=== PATIENT | male | born 1950 | race Caucasian/White ===

== ENCOUNTER 2024-11-26 08:46 | Day surgery (SDC) | payer OTHER ==
[2024-11-22 12:03] VITALS: BMI 24.3
[2024-11-26] MEDS ORDERED: OFLOXACIN 0.3% OPHTHALMIC SOLUTION 5 ML BOTTLE ONE (08:49)
[2024-11-26] MEDS ORDERED: KETOROLAC TROMETHAMINE 0.5% EYE DROP 1 DROP DROPS ONE (08:49)
[2024-11-26] MEDS ORDERED: CYCLOPENTOLATE HCL 1% OPHTH SOLN 2 ML BOTTLE ONE (08:49)
[2024-11-26] MEDS ORDERED: PHENYLEPHRINE 2.5% OPTHALMIC DROP 2ML BOTTLE ONE (08:49)
[2024-11-26] MEDS ORDERED: TROPICAMIDE 1% 3 ML EYE DROPS ONE (08:49)
[2024-11-26] MEDS: OFLOXACIN 0.3% OPHTHALMIC SOLUTION 5 ML BOTTLE OS SCH (09:10)
[2024-11-26] MEDS: PHENYLEPHRINE 2.5% OPHTH SOLN 15 ML BOTTLE OS SCH (09:10)
[2024-11-26] MEDS: KETOROLAC TROMETHAMINE 0.5% EYE DROP 1 DROP DROPS OS SCH (09:10)
[2024-11-26] MEDS: TROPICAMIDE 1% OPHTH SOLN 15 ML BOTTLE OS SCH (09:10)
[2024-11-26] MEDS: CYCLOPENTOLATE HCL 1% OPHTH SOLN 2 ML BOTTLE OS SCH (09:10)
[2024-11-26] MEDS ORDERED: ACETAMINOPHEN 325 MG TABLET (FP) PO PRN (09:13)
[2024-11-26] MEDS ORDERED: BACITRACIN/POLYMYXIN OPH OINT 3.5 GM TUBE ONE (09:56)
[2024-11-26] MEDS ORDERED: POVIDONE-IODINE 5% OPHTHALMIC PREP 30 ML SOLUTION ONE (09:56)
[2024-11-26] MEDS ORDERED: EPI-SHUGARCAINE (EPINEPHRINE 0.025% & LIDOCAINE-PF 0.75%) 4ML ONE (09:56)
[2024-11-26] MEDS ORDERED: NEO/POLYMYX B SULF/DEXAMETH OPHTHALMIC 5ML BOTTLE ONE (09:56)
[2024-11-26] MEDS ORDERED: TETRACAINE 0.5% OPHTH SOLN 2 ML BOTTLE ONE (09:56)
[2024-11-26] MEDS ORDERED: BETAXOLOL HCL 0.25% OPHTHALMIC 10 ML DROPSBTL ONE (09:56)
[2024-11-26] MEDS ORDERED: MIDAZOLAM HCL 2 MG/2 ML SINGLE DOSE VIAL ONE ×2 (10:26→10:33)
[2024-11-26] MEDS ORDERED: ONDANSETRON 4 MG/2 ML VIAL ONE (10:35)
[2024-11-26 12:11] VITALS: RESP 16; TEMP 97.3
[2024-11-26 12:23] VITALS: BP 104/47; PULSE 54
== END 2024-11-26 12:10 | disposition home or self-care (01) ==
LOC: FASU 08:46
PROVIDERS: ATTEND Ophthalmology
PROC: 08RK3JZ Replacement of Left Lens with Synthetic Substitute, Percutaneous Approach (ICD-10-PCS; principal; 2024-11-26 10:43)
DX: H25.89 Other age-related cataract (principal)
CPT/HCPCS: 66984; V2632

== ENCOUNTER 2024-12-17 09:24 | Day surgery (SDC) | payer OTHER ==
[2024-11-26 13:23] VITALS: BMI 24.3
[~2024-12-17 09:24] MED LIST: ACETAMINOPHEN 325 MG TABLET (FP) PO PRN
[2024-12-17] MEDS ORDERED: TROPICAMIDE 1% 3 ML EYE DROPS ONE (09:36)
[2024-12-17] MEDS ORDERED: CYCLOPENTOLATE HCL 1% OPHTH SOLN 2 ML BOTTLE ONE (09:36)
[2024-12-17] MEDS ORDERED: PHENYLEPHRINE 2.5% OPTHALMIC DROP 2ML BOTTLE ONE (09:36)
[2024-12-17] MEDS ORDERED: KETOROLAC TROMETHAMINE 0.5% EYE DROP 1 DROP DROPS ONE (09:36)
[2024-12-17] MEDS ORDERED: OFLOXACIN 0.3% OPHTHALMIC SOLUTION 5 ML BOTTLE ONE (09:36)
[2024-12-17] MEDS: OFLOXACIN 0.3% OPHTHALMIC SOLUTION 5 ML BOTTLE OD SCH (09:50)
[2024-12-17] MEDS: TROPICAMIDE 1% OPHTH SOLN 15 ML BOTTLE OD SCH (09:50)
[2024-12-17] MEDS: KETOROLAC TROMETHAMINE 0.5% EYE DROP 1 DROP DROPS OD SCH (09:50)
[2024-12-17] MEDS: PHENYLEPHRINE 2.5% OPHTH SOLN 15 ML BOTTLE OD SCH (09:50)
[2024-12-17] MEDS: CYCLOPENTOLATE HCL 1% OPHTH SOLN 2 ML BOTTLE OD SCH (09:50)
[2024-12-17] MEDS ORDERED: BETAXOLOL HCL 0.25% OPHTHALMIC 10 ML DROPSBTL ONE (10:11)
[2024-12-17] MEDS ORDERED: NEO/POLYMYX B SULF/DEXAMETH OPHTHALMIC 5ML BOTTLE ONE (10:11)
[2024-12-17] MEDS ORDERED: BACITRACIN/POLYMYXIN OPH OINT 3.5 GM TUBE ONE (10:11)
[2024-12-17] MEDS ORDERED: POVIDONE-IODINE 5% OPHTHALMIC PREP 30 ML SOLUTION ONE (10:11)
[2024-12-17] MEDS ORDERED: EPI-SHUGARCAINE (EPINEPHRINE 0.025% & LIDOCAINE-PF 0.75%) 4ML ONE (10:11)
[2024-12-17] MEDS ORDERED: TETRACAINE 0.5% OPHTH SOLN 2 ML BOTTLE ONE (10:11)
[2024-12-17 10:25] VITALS: RESP 19; TEMP 97.8
[2024-12-17] MEDS ORDERED: MIDAZOLAM HCL 2 MG/2 ML SINGLE DOSE VIAL ONE ×2 (11:16→11:37)
[2024-12-17 12:32] VITALS: BP 105/58; PULSE 90
== END 2024-12-17 12:39 | disposition home or self-care (01) ==
LOC: FASU 09:24
PROVIDERS: ATTEND Ophthalmology
PROC: 08RJ3JZ Replacement of Right Lens with Synthetic Substitute, Percutaneous Approach (ICD-10-PCS; principal; 2024-12-17 11:32)
DX: H25.89 Other age-related cataract (principal)
CPT/HCPCS: 66984; V2632